=== PATIENT | female | born 1960 | race Caucasian/White ===

== ENCOUNTER 2017-08-11 22:34 | Emergency (ER) | payer OTHER | END 2017-08-12 01:50 | disposition home or self-care (01) | LOC: FTE 22:34 | DX: J20.9 Acute bronchitis, unspecified (principal) | CPT/HCPCS: 99284; Z7502 ==

== ENCOUNTER 2018-08-02 10:03 | Emergency (ER) | payer OTHER ==
[2018-08-02] MEDS: KETOROLAC 30 MG INJ IM (11:10)
[2018-08-02] MEDS: HYDROCODONE/APAP (5/325) TAB PO (11:10)
== END 2018-08-02 12:35 | disposition home or self-care (01) ==
LOC: FTE 10:03
DX: S33.5XXA Sprain of ligaments of lumbar spine, initial encounter (principal); S13.9XXA Sprain of joints and ligaments of unspecified parts of neck, initial encounter; V89.9XXA Person injured in unspecified vehicle accident, initial encounter
CPT/HCPCS: 72040; 72100; 96372; 99284-25